=== PATIENT | female | born 1965 | race Caucasian/White ===

== ENCOUNTER 2019-02-12 23:03 | Emergency (ER) | payer MEDICARE ==
[~2019-02-12] VITALS: Ht 167.6 cm; Wt 90.0 kg
[~2019-02-12 23:03] MED LIST: NO HOME MEDS; PANT-47 PO
[2019-02-12] MEDS ORDERED: ketorolac trometh inj. 60 MG/2 ML VIAL IM ONE (23:30)
[2019-02-12] MEDS ORDERED: HYDROcodone/acetaminophen 5mg/325mg tablet PO ONE (23:30)
[2019-02-12] MEDS ORDERED: NAPR-56 PO (23:51)
[2019-02-12] MEDS ORDERED: HYDR-4383 PO (23:51)
[2019-02-13 00:12] VITALS: BP 149/72
--- NOTE | 2019-02-13 14:05 | NUR ---
JALEN HODGES CALLED ASKING FOR CONFIRMATION OF DATE PRESCRIPTIONS WRITTEN WERE 02/12/19
== END 2019-02-13 00:15 | disposition home or self-care (01) ==
LOC: ER 23:04
DX: M25.561 Pain in right knee (principal); E11.9 Type 2 diabetes mellitus without complications; Z79.899 Other long term (current) drug therapy
CPT/HCPCS: 29505; 73564; 96372; 99283; J1885